=== PATIENT | female | born 1995 | race Caucasian/White ===

== ENCOUNTER → 2017-02-06 00:44 | Observation (INO) ==
[2017-02-06 00:42] VITALS: BP 113/76
--- NOTE | 2017-02-06 01:35 | Discharge Summary ---
Date of Encounter: 02/06/17 Time of Encounter: 01:36 - Discharge Diagnosis (1) 40 weeks gestation of Priority: Primary Status: Acute Comments: admitted for labor evaluation (2) False labor after 37 completed weeks of gestation Priority: Secondary Status: Acute Comments: No cervical change after monitoring for 1 hour (3) NST (non-stress test) reactive on surveillance Priority: Secondary Status: Acute Comments: FHR 140 bpm moderate variability +15x15 accels no decels noted. Contractions irregular. 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 Patient reports +FM. Patient denies LOF or VB. Patient receives care at [facility]. Patient had a reactive NST and did not make cervical change. Time Attestation: Total time spent providing and/or coordinating discharge services: Time Spent: Less than 30 minutes Exam - Constitutional Vitals: Temp Pulse Resp BP 98.9 F 96 16 113/76 02/06/17 00:41 02/06/17 00:41 02/06/17 00:41 02/06/17 00:41 General appearance IM: A&O X 3 - Other Additional findings: FHR 145 bpm moderate variability + 15x15 accels no decels noted. CAt. 1 tracing. Reactive NST Contractions are irregular. SVE was 4.5/80/-1 per RN on exam. No cervical change after 1 hour of observation. Discussed patient with Dr. Reich plan to discharge home if no cervical change. - VTE Reasons for not Prescribing Prophylaxis: Treatment not Indicated - Low risk for VTE
== END | disposition home or self-care (01) ==
LOC: 1NENULAB
PROVIDERS: ADMIT Obstetrics & Gynecology; ATTEND Obstetrics & Gynecology

== ENCOUNTER 2017-02-06 07:39 | Inpatient (IN) ==
[~2017-02-06 07:39] MED LIST: Ringers Solution, Lactated 1,000 ML ONE
[2017-02-06] MEDS ORDERED: Metoclopramide 10 MG/2 ML VIAL IVP PRN (07:43)
[2017-02-06] MEDS ORDERED: Naloxone 0.4 MG/ML INJ IVP PRN (07:43)
[2017-02-06] MEDS ORDERED: Ondansetron 4 MG/2 ML VIAL IVP PRN (07:43)
[2017-02-06] MEDS ORDERED: Famotidine 20 MG/2 ML VIAL IVP PRN (07:43)
[2017-02-06] MEDS ORDERED: Ringers Solution, Lactated 1,000 ML IVC SCH (07:45)
[2017-02-06 07:59] LABS: Basophils % 0.2 %; Eosinophils % 0.2 %; Hematocrit 35.8 % (35.3-44.9); Hemoglobin 11.4 g/dL (11.5-15.4); Immature Granulocytes % 0.8 % (0-4); Lymphocytes % 8.5 %; Mean Corpuscular HGB Conc 31.8 g/dL (31.6-35.5); Mean Corpuscular Hemoglobin 25.1 pg (28.0-33.3); Mean Corpuscular Volume 78.9 fL (83.0-100.0); Mean Platelet Volume 11.7 fL (9.4-12.4); Monocytes # 0.6 K/mcL (0.0-1.3); Monocytes % 4.7 %; Neutrophils # 9.9 K/mcL (1.6-8.9); Platelet Count 265 K/mcL (140-400); Red Blood Count 4.54 M/mcL (3.82-4.97); Red Cell Distribution Width 15.4 % (11.5-14.5); Segmented Neutrophils % 85.6 %
[2017-02-06] MEDS ORDERED: Ringers Solution, Lactated 1,000 ML ONE (08:12)
[2017-02-06] MEDS ORDERED: Bupivacaine-MPF 0.25% 10 ML VIAL EP ONE (08:18)
[2017-02-06] MEDS ORDERED: *HR* FentaNYL (PF) 100 MCG/2 ML VIAL EP ONE (08:18)
[2017-02-06] MEDS ORDERED: *HR* FentaNYL (PF) 100 MCG/2 ML VIAL ONE (08:21)
[2017-02-06] MEDS ORDERED: Bupivacaine-MPF 0.25% 10 ML VIAL ONE (08:21)
[2017-02-06] MEDS ORDERED: Epidural Premix (fent/bupiv) 110 ML EP ONE ×2 (08:22→15:28)
[2017-02-06] MEDS ORDERED: Epidural Premix (fent/bupiv) 110 ML EP SCH (08:30)
--- NOTE | 2017-02-06 09:11 | Anesthesia Evaluation PreOp ---
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 HX Other Medical History: GERD Anesthesia History: No Prior Anesthetic Complications (vag delivery x 1) : Yes Test: Positive Alcohol Use: none Drug use: none Medications and Allergies One Tablet 1 tab PO DAILY 02/06/17 [History] Allergies No Known Allergies Allergy (Verified 02/06/17 07:48) - Meds/Allergy Pre-op Review Medications Reviewed: Yes Allergies Reviewed: Yes Beta Blockers on Current Med List: No Anesthesia Results - Labs 02/06/17 07:24 Anesthesia Exam 3 Vital Signs Time 0810 BP 125/79 Pulse 93 Resp 16 O2 Sat 97 Height: 66 inches Weight: 74 kg NPO (# of Hours): clears Pain Scale: 8 Pain Scale Used: Numeric (1 - 10) - HEENT Pupil (Motor): Pupils equal Mallampati: II Teeth: Poor dentition Oral Opening: Greater than 3 - 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
--- NOTE | 2017-02-06 09:17 | Anesthesia Procedures ---
Date of Encounter: 02/06/17 Time of Encounter: 08:31 Procedures: Anesthesia - Epidural/Spinal Patient ID/Chart reviewed: Yes Patient examined: Yes OB Eval: Gestational age: 40 weeks 1 day OB Eval: : 2 OB Eval: Hx Para: 1 OB Eval: Dilated at (cm): 6 OB Eval: Contractions: Non-stressed pattern Consent Obtained: Yes Supplemental Oxygen: None/Room Air Site Prep: Aseptic Technique, Sterile prep and drape, Povidone-Iodine 1% Patient position: upright Local Anesthetic: Lidocaine 1% Amount of Local Anesthetic used: 3 Touhy Needle Gauge: 18 Touhy Needle Depth (cm): 5 Catheter Depth at Skin (cm): 12 Test Dose (1.5% Lido + Epi): Volume given (mls): 3 Test Dose Result: Negative Loading Dose: 0.25% Marcaine (mls): 5 Loading Dose: Fentanyl (mcg): 100 Loading Dose: Other: 3 ml saline Loading Dose Administered: Thru Catheter Infusion Med: 0.125% Bupivacaine w/ 2 mcg/ml Fentanyl Infusion Rate (mls/hr): [address]: Tegaderm, Tape Interspace Used: L3-L4 Loss of Resistance (STANTON): Yes (air) Blood: No CSF: No Paresthesia: No Procedure: 3 Vital Signs Time 0831 start 0846 cath 0854 loading dose 0903 pump started BP 133/76 122/69 115/71 113/72 Pulse 103 109 107 111 Resp 16 16 16 16 O2 Sat 97 97 97 97 heart tones 140 throughout
--- NOTE | 2017-02-06 10:35 | OB Labor Progress Note ---
Date of Encounter: 02/06/17 Time of Encounter: 10:34 Labor Progress Note - Subjective Subjective: Pt comfortable with epidural. - Cervix Cervix: 7/100/0 - Heart Tones Heart Tones: Category I - [place]: irregular - Interventions Interventions: AROM for small amount clear fluid - Plan Plan: Continue to monitor and reposition frequently. Anticipate .
--- NOTE | 2017-02-06 10:42 | OB/GYN History & Physical ---
Date of Encounter: 02/06/17 Time of Encounter: 10:39 Assessment and Plan (1) Spontaneous onset of labor Current visit: Yes Status: Acute Admit for expectant management. Epidural. AROM performed. Anticipate . (2) Rh negative status during in third trimester, antepartum Current visit: Yes Status: Acute (3) 40 weeks gestation of Current visit: No Status: Acute History of Present Illness HPI: Ms. Lopez is a 22 year old female presenting at 40 weeks gestation with c/o contractions. She was seen last evening and was 4-5cm and when she returned this am she was 6cm dilated. No other complaints. Good FM. She received PNC at [facility] with this . Blood type O negative. Serologies and GBS negative. She denies any problems with this or her last /delivery. No medical or surgical history. She denies smoking or any other substances. Past Med Surg Social Fam HX - Past Medical History Medical history: no medical history Psychiatric history: no psych history - Past Surgical History Surgical History: no surgical history - Social History Smoking Status: Never smoker Smokeless Tobacco Status: No Alcohol use: none Drug use: none - Family History Maternal Grandmother Adopted: No Family Member Ethnicity: Non- Living Status: Still Living Hx Family Cardiac Disorders: Yes (htn) Obstetrical History - Pregnancies : 2 Para: 1 Term: 1 : 0 Ab's: 0 Livin Medications and Allergies One Tablet 1 tab PO DAILY 02/06/17 [History] Allergies No Known Allergies Allergy (Verified 02/06/17 07:48) Review of System OB All systems PM: reviewed and no additional remarkable complaints except as stated Exam - Constitutional Constitutional: well developed, well nourished - HEENT HEENT: Mucus Membranes Moist - Lungs Respiratory exam: CTAB - Cardiovascular Cardiovascular exam: RRR - Abdomen Abdomen: Present: gravid, non tender - Extremities Extremities exam: normal inspection - Vagina Vagina: Present: normal moisture - Cervix Dilation: 7 Effacement: 100 Station: 0 - Anus/Rectum Anus/Rectum: Present: normal perianal skin Results Result Diagrams: 02/06/17 07:24 Abnormal lab results WBC 11.6 K/mcL (4.3-11.1) H 02/06/17 07:24 Hgb 11.4 g/dL (11.5-15.4) L 02/06/17 07:24 MCV 78.9 fL (83.0-100.0) L 02/06/17 07:24 MCH 25.1 pg (28.0-33.3) L 02/06/17 07:24 RDW 15.4 % (11.5-14.5) H 02/06/17 07:24 Neutrophils # 9.9 K/mcL (1.6-8.9) H 02/06/17 07:24 All other labs normal. - VTE Reasons for not Prescribing Prophylaxis: Treatment not Indicated - Low risk for VTE
--- NOTE | 2017-02-06 13:35 | OB Labor Progress Note ---
Date of Encounter: 02/06/17 Time of Encounter: 13:33 Labor Progress Note - Subjective Subjective: Pt comfortable with epidural. - Cervix Cervix: 8/100/0 - Heart Tones Heart Tones: Category I - Interventions Interventions: IUPC placed - Plan Plan: Continue to monitor. Will augment with pitocin if contractions inadequate. Anticipate .
[2017-02-06] MEDS ORDERED: Oxytocin 20 units/ LR 1000 mL 20 UNIT/1,000 ML BAG IVC SCH ×2 (14:15→20:23)
[2017-02-06] MEDS ORDERED: *HR* Ropivacaine/PF 0.2% 10 ML AMPUL ONE (15:17)
--- NOTE | 2017-02-06 15:37 | Anesthesia Progress Note ---
Date of Encounter: 02/06/17 Time of Encounter: 15:22 Anesthesia Note - Note Note: 02/06/17 15:35 patient complaining of contraction pain in abdominal region, 10 ml bolus of ropivicaine 0.2% given in 3 increments over 10 min. 3 Vital Signs Time 1520 1525 BP 126/69 119/64 Pulse 103 102 Resp 18 18 O2 Sat
--- NOTE | 2017-02-06 19:04 | OB/GYN Procedure Note ---
Delivery - Delivery Date: 02/06/17 Provider: Sonia Molina Delivery induction: none Delivery augmentation: rupture of membranes Delivery monitor: external FHT, internal uterine Anesthesia: epidural Estimated Blood Loss: 200 - Infant (s) A Delivery Date: 02/06/17 Delivery Time: 18:39 Presentation: vertex Position: CHARU Route of delivery: Gender: Female Viability: Viable Pounds: 8 Ounces: 10 Weight Gram: 3905 kg at 1 minute: 8 at 5 mins: 9 Shoulder Dystocia: not encountered Specimens collected: cord blood Placenta: spontaneous Cord: 3 umbilical vessels - Repair Episiotomy: none Laceration Description: None - Complications Delivery complications: meconium (terminal meconium) Delivery comments: Pt presented in active labor and progressed normally after AROM and epidural. She underwent over intact perineum for viable female weighing 8lbs 10oz. After a 3 minute delay the cord was clamped and cut and the placenta delivered spontaneous and intact. No repair needed. Pt and baby stable in kangaroo care following delivery. - Disposition Mom disposition: stable in LDR [place] disposition: stable in LDR
[2017-02-06] MEDS ORDERED: Ampicillin 2 GM in 0.9 % Sodium Chloride Mini Bag 100 ML IVPB ONE (20:03)
[2017-02-06] MEDS ORDERED: Acetaminophen 325 MG TABLET PO PRN (20:23)
[2017-02-06] MEDS ORDERED: Rho Immune Globulin 1,500 UNIT SYRINGE IM PRN (20:23)
[2017-02-06] MEDS ORDERED: Lanolin 7 G OINT...G. TP PRN (20:23)
[2017-02-06] MEDS ORDERED: Benzocaine/Menthol 56 GM AEROSOL SPRAY TP PRN (20:23)
[2017-02-06] MEDS ORDERED: Measles/Mumps/Rubella Vacc 0.5 ML VIAL SQ PRN (20:23)
[2017-02-07] MEDS: Ibuprofen 600 MG TABLET PO PRN ×3 (07:27→21:27)
--- NOTE | 2017-02-07 08:57 | OB/GYN Progress Note ---
Date of Encounter: 02/07/17 Time of Encounter: 08:56 - Assessment and Plan (1) Vaginal delivery Current Visit: Yes Status: Acute Pt meeting milestones for PPD 1. Continue current management. Anticipate DC tomorrow. Subjective - Subjective Interval history: Pt states feeling well, , pain well managed on po pain medication, bleeding with some clots but amount is lessening. Patient reports: appetite normal, voiding normally, pain well controlled, ambulating normally [place]: doing well, nursing well Objective - Latest Vital Signs Latest vital signs: Vital Signs Temp Pulse Resp BP Pulse Ox 02/07/17 03:01 98.6 F 88 16 103/63 99 02/06/17 22:19 98 F 98 16 115/77 100 02/06/17 21:30 98.1 F 82 18 129/78 100 02/06/17 20:30 98.0 F 87 18 126/78 99 Intake and Output 02/06/17 02/07/17 02/07/17 23:59 07:59 15:59 Intake Total 800 / 800 Output Total 2200 / 2200 Balance -2200 / -2200 800 / 800 Intake: Oral 800 / 800 Output: Urine 1200 / 1200 Estimated Blood Loss 200 / 200 Catheter 800 / 800 Other: # Voids 1 1 - Exam Lungs: bilateral: normal Chest: Normal S1, Normal S2 Extremities: Present: normal Abdomen: Present: normal appearance, soft Uterus: Present: normal, firm Uterus Position: At Umbilicus - Labs Labs: Laboratory Results - last 24 hr 02/06/17 19:03 Baby's Blood Type O RH NEGATIVE Mother's Blood Type O RH NEGATIVE Rhogam Indicated NO
[2017-02-07] MEDS ORDERED: Prenatal Vit/FA 1 EACH TABLET PO SCH (09:00)
--- NOTE | 2017-02-08 08:01 | Discharge Summary ---
Date of Encounter: 02/08/17 Time of Encounter: 07:58 - Discharge Diagnosis (1) Vaginal delivery Priority: Primary Status: Acute - Discharge Medications Home Medications: One Tablet 1 tab PO DAILY 02/06/17 [History] Allergies/Adverse Reactions: Allergies No Known Allergies Allergy (Verified 02/06/17 07:48) Data Procedures and tests throughout hospitalization: Laboratory Tests 02/06/17 02/06/17 07:24 19:03 WBC 11.6 H RBC 4.54 Hgb 11.4 L Hct 35.8 MCV 78.9 L MCH 25.1 L MCHC 31.8 RDW 15.4 H Plt Count 265 MPV 11.7 Immature Gran % 0.8 Seg Neutrophils % 85.6 Lymphocytes % 8.5 Monocytes % 4.7 Eosinophils % 0.2 Basophils % 0.2 Neutrophils # 9.9 H Lymphocytes # 1.0 Monocytes # 0.6 Eosinophils # 0.0 Basophils # 0.0 Baby's Blood Type O RH NEGATIVE Mother's Blood Type O RH NEGATIVE Rhogam Indicated NO Date of admission: 02/06/17 07:39 Primary care physician: PCP NONE Consults: 02/06/17 20:23 Consult to National Account Representative [CONS] Routine Comment: Vaginal delivery, consult needed Consult to Logging Operations Inspector [CONS] Routine Reason for SW Consult: PNC outside hospital Discharging clinician: Radha Correa Anticipated date of discharge: 02/08/17 - Patient Status Disposition: Home, Self-Care Condition: Good Functional capacity at discharge: independent ambulation Overall status at discharge: patient is back to baseline - Discharge Instructions Follow Up With: NONE,PCP [Primary Care Provider] - Additional Instructions: Follow-up with your OB-STACKER DRIVER Connie Erickson - Diet and Activity Diet: regular diet Hospital Course Reason for admission: active labor Delivery: Episiotomy: none Laceration: none Other procedures: none complications: none Discharge diagnosis: IUP at term delivered [place] baby: female Hospital course: - Delivery Date: 02/06/17 Provider: Sonia Molina Delivery induction: none Delivery augmentation: rupture of membranes Delivery monitor: external FHT, internal uterine Anesthesia: epidural Estimated Blood Loss: 200 - Infant (s) Infant A Infant Delivery Date: 02/06/17 Delivery Time: 18:39 Presentation: vertex Position: CHARU Route of delivery: Gender: Female Viability: Viable Pounds: 8 Ounces: 10 Weight Gram: 3905 kg at 1 minute: 8 at 5 mins: 9 Shoulder Dystocia: not encountered Specimens collected: cord blood Placenta: spontaneous Cord: 3 umbilical vessels - Repair Episiotomy: none Laceration Description: None - Complications Delivery complications: meconium (terminal meconium) Delivery comments: Pt presented in active labor and progressed normally after AROM and epidural. She underwent over intact perineum for viable female weighing 8lbs 10oz. After a 3 minute delay the cord was clamped and cut and the placenta delivered spontaneous and intact. No repair needed. Pt and baby stable in kangaroo care following delivery. Time Attestation: Total time spent providing and/or coordinating discharge services: Exam - Constitutional Vitals: Temp Pulse Resp BP Pulse Ox 97.8 F 102 16 100/60 98 02/07/17 19:40 02/07/17 19:40 02/07/17 19:40 02/07/17 19:40 02/07/17 19:40 General appearance IM: A&O X 3, answers questions appropriately - Respiratory Respiratory exam: Present: CTAB - Cardiovascular Cardiovascular exam IM: Present: RRR, +S1, +S2 - GI/Abdominal GI/Abdominal exam IM: normal bowel sounds, soft - Uterus Position: 3 Fingers Below Umbilicus, Midline - Extremities Exam Extremities exam IM: Present: normal capillary refill, normal inspection, warm
[2017-02-08 08:25] VITALS: BP 120/83
== END 2017-02-08 11:25 | disposition home or self-care (01) | DRG 560 ==
LOC: 1NENULAB 07:39 → 1NENUOBS 20:26
PROVIDERS: ADMIT Registered Nurse; ATTEND Registered Nurse

== ENCOUNTER 2018-08-21 08:00 | Inpatient (IN) ==
[2018-08-21] MEDS ORDERED: *HR* Nalbuphine 10 MG/ML AMPUL IVP PRN (08:37)
[2018-08-21] MEDS ORDERED: Famotidine 20 MG/2 ML VIAL IVP PRN (08:37)
[2018-08-21] MEDS ORDERED: Ondansetron 4 MG/2 ML VIAL IVP PRN (08:37)
[2018-08-21] MEDS ORDERED: Naloxone 0.4 MG/ML INJ IVP PRN (08:37)
[2018-08-21] MEDS ORDERED: Metoclopramide 10 MG/2 ML VIAL IVP PRN (08:37)
[2018-08-21] MEDS ORDERED: D5% in 0.45% NACL 1,000 ML IVC SCH (08:45)
[2018-08-21] MEDS ORDERED: Oxytocin 20 units/ LR 1000 mL 20 UNIT/1,000 ML BAG IVC SCH ×2 (08:45→19:56)
[2018-08-21] MEDS ORDERED: Ringers Solution, Lactated 1,000 ML ONE (08:54)
--- NOTE | 2018-08-21 09:01 | OB/GYN History & Physical ---
Date of Encounter: 08/21/18 Time of Encounter: 08:53 Assessment and Plan (1) 39 weeks gestation of Current visit: Yes Status: Acute The patient has only hand 10 pound weight gain since 28 weeks. Induction of labor. History of 8 lbs. 10 oz. vaginal delivery (2) Late care affecting in third trimester Current visit: Yes Status: Acute (3) Anemia complicating , third trimester Current visit: Yes Status: Acute The patient is currently receiving iron supplementation. CBC on admission pending (4) Blood type O- Current visit: Yes Status: Acute RhoGAM evaluation following delivery History of Present Illness Chief complaint: IOL HPI: Ms. Lopez is a 23 year old female with an EDC of 08/24/18 by a 28 week ultrasound, who presents for induction of labor at 39 weeks and 4 days. Her has been complicated by late care, anemia, advanced cervical dilatation with a proven pelvis to 8 lbs. 10 oz. Her labs include a blood type of O-, she is GBS negative, rubella immune, varicella immune, hepatitis B surface antigen negative. She has had appropriate interval growth. She is requesting an induction of labor due to social issues with the FOB's plans for work. She has had no bleeding or loss of fluid but reports cramping with a tight abdomen this morning. Her fetus has been active, meeting kick count criteria. Past Med Surg Social Fam HX - Past Medical History Source: patient, old records reviewed Medical history: no medical history Psychiatric history: no psych history - Past Surgical History Surgical History: no surgical history - Social History Smoking Status: Never smoker Smokeless Tobacco Status: No Alcohol use: none Drug use: none - Family History Maternal Grandmother Adopted: No Family Member Ethnicity: Non- Living Status: Still Living Hx Family Cardiac Disorders: Yes (htn) Obstetrical History - Pregnancies : 3 Term: 2 Livin Medications and Allergies One Tablet 1 tab PO DAILY 02/06/17 [History] Ferrous Sulfate 325 mg PO DAILY 08/21/18 [History] Allergy/AdvReac Type Severity Reaction Status Date / Time No Known Allergies Allergy Verified 02/06/17 07:48 Review of System OB All systems PM: reviewed and no additional remarkable complaints except as stated - Constitutional Constitutional ROS IM: fatigue, weight gain - Gastrointestinal Gastrointestinal: cramping Exam - Vital Signs Vital signs: Afebrile, vital signs stable. heart tones 130s baseline, CAT 1. [place] shows no regular contractions. - Constitutional Constitutional: well developed, well nourished, no acute distress, average body habitus - HEENT HEENT: Normocephaly, Mucus Membranes Moist - Neck Neck exam: normal inspection, supple - Lungs Respiratory exam: CTAB - Cardiovascular Cardiovascular exam: RRR - Abdomen Abdomen: Present: bowel sounds normal, gravid, non tender - Cervix Dilation: 5 Effacement: 70 Station: -1 - Uterus Uterus exam: Present: normal contour - Anus/Rectum Anus/Rectum: Present: normal perianal skin Results All other labs normal. - VTE Reasons for not Prescribing Prophylaxis: Treatment not Indicated - Low risk for VTE
[2018-08-21 09:12] LABS: Basophils % 0.1 %; Eosinophils # 0.1 K/mcL (0.0-0.6); Eosinophils % 1.2 %; Hematocrit 32.8 % (35.3-44.9); Hemoglobin 10.9 g/dL (11.5-15.4); Immature Granulocytes % 0.7 % (0-4); Lymphocytes # 1.5 K/mcL (0.6-4.6); Lymphocytes % 20.1 %; Mean Corpuscular HGB Conc 33.2 g/dL (31.6-35.5); Mean Corpuscular Hemoglobin 26.5 pg (28.0-33.3); Mean Corpuscular Volume 79.6 fL (83.0-100.0); Mean Platelet Volume 11.2 fL (9.4-12.4); Monocytes # 0.6 K/mcL (0.0-1.3); Monocytes % 7.9 %; Neutrophils # 5.3 K/mcL (1.6-8.9); Platelet Count 270 K/mcL (140-400); Red Blood Count 4.12 M/mcL (3.82-4.97); Red Cell Distribution Width 14.3 % (11.5-14.5)
[2018-08-21 09:24] LABS: Amphetamine Screen,Urine Negative ng/mL (Cutoff=1000); Barbiturate Screen,Urine Negative ng/mL (Cutoff=200); Benzodiazepines Screen,Urine Negative ng/mL (Cutoff=200); Cannabinoid Screen,Urine Negative ng/mL (Cutoff = 50); Cocaine Screen,Urine Negative ng/mL (Cutoff= 300); Opiate Screen,Urine Negative ng/mL (Cutoff=300); Phencyclidine Screen,Urine Negative ng/mL (Cutoff=25)
[2018-08-21] MEDS ORDERED: Epidural Premix (fent/bupiv) 110 ML EP SCH (09:30)
--- NOTE | 2018-08-21 13:01 | OB Labor Progress Note ---
Date of Encounter: 08/21/18 Time of Encounter: 12:59 Labor Progress Note - Subjective Subjective: The patient reports that she is still comfortable despite her contractions - Vital Signs Vital Signs: Afebrile, vital signs stable - Cervix Cervix: 5/70/-1, vertex with bulgy bag of water - Heart Tones Heart Tones: 120s baseline, CAT 1 - [place]: Contractions every 3 minutes on 14 milliunits of Pitocin by external monitor - Interventions Interventions: 39 week IUP for induction of labor - Plan Plan: Amniotomy, moderate to large amount of clear fluid seen, IUPC placed. Continue induction of labor. Pain management per patient request
[2018-08-21] MEDS ORDERED: Lidocaine -MPF 1% 5 ML AMPUL ONE (13:33)
--- NOTE | 2018-08-21 17:35 | OB/GYN Procedure Note ---
Delivery - Delivery Date: 08/21/18 Provider: Nancy Garza Intrapartum events: none Delivery induction: oxytocin Delivery augmentation: rupture of membranes Delivery monitor: external FHT, external uterine, internal uterine Anesthesia: intravenous Quantitated Blood Loss: 100 - (s) A Infant Delivery Date: 08/21/18 Delivery Time: 17:05 Presentation: vertex Position: CHARU Route of delivery: Gender: Male Viability: Viable Pounds: 8 Ounces: 14 Weight Gram: 4.015 kg at 1 minute: 8 at 5 mins: 9 Shoulder Dystocia: encountered Shoulder Dystocia Maneuvers: Noah maneuver, Garcia Screw maneuver, Reverse Garcia Screw maneu Shoulder dystocia time elapsed: 66 seconds Specimens collected: cord blood Placenta: spontaneous, uterine exploration Cord: 3 umbilical vessels - Repair Episiotomy: none Laceration Description: None - Complications Delivery complications: uterine atony Delivery comments: The patient was complete and pushing for 2 contractions without anesthesia with a spontaneous vaginal delivery in the CHARU position with a shoulder dystocia of 66 seconds requiring Garcia screw and reverse Garcia screw maneuver. Trial of delivery of the posterior shoulder was not successful. A vigorous male infant weighing 8 lbs.14 oz. with Apgars of 8 at 1 minute and 9 at 5 minutes was delivered, placed on the maternal abdomen and handed to the nursery care team. The cord was clamped and cut after pulsations ceased. Cord blood obtained. The placenta was delivered spontaneous and intact. Three-vessel cord confirmed. There were no cervical vaginal or perineal lacerations. There was uterine atony which was treated with uterine exploration, external uterine massage and evacuation of clots. 400mcg of Cytotec was given orally. Estimated blood loss 100 mL immediate and 400 mL blood clot, other complications none. Both mother and were recovering in stable condition in the LDR - Disposition Mom disposition: stable in LDR disposition: stable in LDR
[2018-08-21] MEDS ORDERED: Rho Immune Globulin 1,500 UNIT SYRINGE IM PRN (19:56)
[2018-08-21] MEDS ORDERED: Acetaminophen 325 MG TABLET PO PRN (19:56)
[2018-08-21] MEDS ORDERED: Measles/Mumps/Rubella Vacc 0.5 ML VIAL SQ PRN (19:56)
[2018-08-21] MEDS: Ibuprofen 600 MG TABLET PO SCH (21:24)
[2018-08-21] MEDS ORDERED: Melatonin 3 MG TABLET PO PRN (22:24)
[2018-08-22] MEDS: Prenatal Vit/FA 1 EACH TABLET PO SCH (08:56)
[2018-08-22 09:26] LABS: Basophils % 0.2 %; Eosinophils % 0.2 %; Hemoglobin 11.4 g/dL (11.5-15.4); Immature Granulocytes % 0.7 % (0-4); Lymphocytes # 1.6 K/mcL (0.6-4.6); Lymphocytes % 13.3 %; Mean Corpuscular HGB Conc 32.6 g/dL (31.6-35.5); Mean Corpuscular Hemoglobin 26.4 pg (28.0-33.3); Mean Platelet Volume 10.7 fL (9.4-12.4); Monocytes # 0.6 K/mcL (0.0-1.3); Monocytes % 5.2 %; Neutrophils # 9.6 K/mcL (1.6-8.9); Platelet Count 296 K/mcL (140-400); Red Blood Count 4.32 M/mcL (3.82-4.97); Red Cell Distribution Width 14.4 % (11.5-14.5); Segmented Neutrophils % 80.4 %
--- NOTE | 2018-08-22 15:12 | OB/GYN Progress Note ---
Date of Encounter: 08/22/18 Time of Encounter: 15:10 - Assessment and Plan (1) Vaginal delivery Current Visit: No Status: Acute Stable day #1 Continue current management Anticipate discharge tomorrow Subjective - Subjective Interval history: Patient states feels well, pain will managed on by mouth pain medication, tolerating diet, breast-feeding Patient reports: appetite normal, voiding normally, pain well controlled, ambulating normally [place]: doing well, nursing well Objective - Latest Vital Signs Latest vital signs: Vital Signs Temp Pulse Resp BP Pulse Ox 08/22/18 08:20 14 08/22/18 08:06 97.6 F 79 16 107/69 08/22/18 04:26 97.6 F 58 18 97/53 100 08/21/18 21:50 97.8 F 78 18 108/65 100 08/21/18 21:27 98.1 F 86 18 97/57 98 08/21/18 19:50 98.1 F 80 16 115/83 100 Intake and Output 08/21/18 08/22/18 08/22/18 23:59 07:59 15:59 Intake Total 1865 / 1865 Output Total 1000 / 1000 1700 / 1700 1999 Balance -1000 / -1000 -1700 / -1700 -135 / -135 Intake: Oral 1865 / 1865 Output: Urine 1000 / 1000 1700 / 1700 1999 Other: Meal Lunch Percent of Meal Consumed 80% Stool Characteristics Normal for Patient - Exam Lungs: bilateral: normal Chest: Normal S1, Normal S2 Extremities: Present: normal Abdomen: Present: soft Uterus: Present: firm Uterus Position: At Umbilicus - Labs Labs: Laboratory Results - last 24 hr 08/21/18 08/22/18 17:25 09:15 WBC 11.9 H D RBC 4.32 Hgb 11.4 L Hct 35.0 L MCV 81.0 L MCH 26.4 L MCHC 32.6 RDW 14.4 Plt Count 296 MPV 10.7 Immature Gran % 0.7 Seg Neutrophils % 80.4 Lymphocytes % 13.3 Monocytes % 5.2 Eosinophils % 0.2 Basophils % 0.2 Neutrophils # 9.6 H Lymphocytes # 1.6 Monocytes # 0.6 Eosinophils # 0.0 Basophils # 0.0 Baby's Blood Type O RH NEGATIVE Mother's Blood Type O RH NEGATIVE Rhogam Indicated NO
[2018-08-22] MEDS: Ibuprofen 600 MG TABLET PO SCH (20:47)
[2018-08-23] MEDS: Prenatal Vit/FA 1 EACH TABLET PO SCH (08:00)
[2018-08-23 08:34] VITALS: BP 105/67
--- NOTE | 2018-08-23 09:18 | Discharge Summary ---
Date of Encounter: 08/23/18 Time of Encounter: 09:16 - Discharge Diagnosis (1) Vaginal delivery Priority: Primary Status: Acute Comments: S/P vaginal delivery day 2 Pain well controlled Lochia light and without clots VSS Tolerating regular diet; passing flatus Voiding without difficulty Breast feeding Discharge home today POC per consult with Dr Salomon (2) Anemia complicating the puerperium Priority: Secondary Status: Acute Comments: VSS, denies symptoms, discharge home with ferrous sulfate - Discharge Medications Prescriptions: New Acetaminophen [Tylenol] 650 mg PO Q6HR PRN tablet PRN Reason: Mild Pain Ibuprofen [Motrin] 600 mg PO Q6HR #30 tablet Breast Pump [BREAST PUMP] 1 each .ROUTE AD #1 each Docusate [Colace] 100 mg PO BID #30 capsule Ferrous Sulfate 325 mg PO DAILY@0800 90 Days #90 tablet Melatonin 3 mg PO HS PRN tablet PRN Reason: Insomnia Continue One Tablet 1 tab PO DAILY Discontinued Ferrous Sulfate 325 mg PO DAILY Home Medications: One Tablet 1 tab PO DAILY 02/06/17 [History] Acetaminophen [Tylenol] 650 mg PO Q6HR PRN tablet 08/23/18 [Rx] Breast Pump [BREAST PUMP] 1 each .ROUTE AD #1 each 08/23/18 [Rx] Docusate [Colace] 100 mg PO BID #30 capsule 08/23/18 [Rx] Ferrous Sulfate 325 mg PO DAILY@0800 90 Days #90 tablet 08/23/18 [Rx] Ibuprofen [Motrin] 600 mg PO Q6HR #30 tablet 08/23/18 [Rx] Melatonin 3 mg PO HS PRN tablet 08/23/18 [Rx] Allergies/Adverse Reactions: Allergy/AdvReac Type Severity Reaction Status Date / Time No Known Allergies Allergy Verified 02/06/17 07:48 Data Procedures and tests throughout hospitalization: Laboratory Tests 08/21/18 08/21/18 08/21/18 08:39 08:45 17:25 WBC 7.5 RBC 4.12 Hgb 10.9 L Hct 32.8 L MCV 79.6 L MCH 26.5 L MCHC 33.2 RDW 14.3 Plt Count 270 MPV 11.2 Immature Gran % 0.7 Seg Neutrophils % 70.0 Lymphocytes % 20.1 Monocytes % 7.9 Eosinophils % 1.2 Basophils % 0.1 Neutrophils # 5.3 Lymphocytes # 1.5 Monocytes # 0.6 Eosinophils # 0.1 Basophils # 0.0 Urine Opiates Screen Negative Ur Barbiturates Screen Negative Ur Phencyclidine Scrn Negative Ur Amphetamines Screen Negative U Benzodiazepines Scrn Negative Urine Cocaine Screen Negative U Marijuana (THC) Screen Negative Ur Drug Screen Interp See Below Baby's Blood Type O RH NEGATIVE Mother's Blood Type O RH NEGATIVE Rhogam Indicated NO 08/22/18 09:15 WBC 11.9 H D RBC 4.32 Hgb 11.4 L Hct 35.0 L MCV 81.0 L MCH 26.4 L MCHC 32.6 RDW 14.4 Plt Count 296 MPV 10.7 Immature Gran % 0.7 Seg Neutrophils % 80.4 Lymphocytes % 13.3 Monocytes % 5.2 Eosinophils % 0.2 Basophils % 0.2 Neutrophils # 9.6 H Lymphocytes # 1.6 Monocytes # 0.6 Eosinophils # 0.0 Basophils # 0.0 Urine Opiates Screen Ur Barbiturates Screen Ur Phencyclidine Scrn Ur Amphetamines Screen U Benzodiazepines Scrn Urine Cocaine Screen U Marijuana (THC) Screen Ur Drug Screen Interp Baby's Blood Type Mother's Blood Type Rhogam Indicated Labs on day of discharge: Labs from last 24 hours 08/22/18 09:15 WBC 11.9 H D RBC 4.32 Hgb 11.4 L Hct 35.0 L MCV 81.0 L MCH 26.4 L MCHC 32.6 RDW 14.4 Plt Count 296 MPV 10.7 Immature Gran % 0.7 Seg Neutrophils % 80.4 Lymphocytes % 13.3 Monocytes % 5.2 Eosinophils % 0.2 Basophils % 0.2 Neutrophils # 9.6 H Lymphocytes # 1.6 Monocytes # 0.6 Eosinophils # 0.0 Basophils # 0.0 Date of admission: 08/21/18 08:09 Primary care physician: PCP NONE Consults: 08/21/18 19:56 Consult to [employer] [CONS] Routine Comment: Vaginal delivery, consult needed Discharging clinician: Linda Bellamy Anticipated date of discharge: 08/23/18 - Patient Status Disposition: Home, Self-Care Condition: Good Functional capacity at discharge: independent ambulation Overall status at discharge: patient is progressing back to baseline - Discharge Instructions Follow Up With: NONE,PCP [Primary Care Provider] - Nancy Garza MD [Partnered Physician] - - Diet and Activity Activity: increase activity as tolerated Diet: regular diet Hospital Course Reason for admission: induction of labor, IUP at term Delivery: Episiotomy: none Laceration: none Other procedures: none complications: none Discharge diagnosis: IUP at term delivered baby: male Time Attestation: Total time spent providing and/or coordinating discharge services: Time Spent: Less than 30 minutes Exam - Constitutional Vitals: Temp Pulse Resp BP Pulse Ox 97.5 F L 90 16 105/67 94 08/23/18 08:10 08/23/18 08:10 08/23/18 08:10 08/23/18 08:10 08/23/18 08:10 General appearance IM: cooperative, A&O X 3, pleasant - Respiratory Respiratory exam: Present: CTAB - Cardiovascular Cardiovascular exam IM: Present: RRR, +S1, +S2 - GI/Abdominal GI/Abdominal exam IM: normal bowel sounds, soft - Rectal Rectal exam: deferred - Uterine Tone: Firm Uterus Position: At Umbilicus, Midline - Extremities Exam Extremities exam IM: Present: normal capillary refill, normal inspection, radial pulses palpable and symmetrical - Neurological Exam Neurological exam: alert, oriented X3
== END 2018-08-23 10:36 | disposition home or self-care (01) | DRG 560 ==
LOC: 1NENULAB 08:09 → 1NENUOBS 19:47
PROVIDERS: ADMIT Obstetrics & Gynecology; ATTEND Obstetrics & Gynecology

== ENCOUNTER 2021-01-01 10:05 | Inpatient (IN) ==
[2021-01-01] MEDS ORDERED: Naloxone 0.4 MG/ML INJ IVP PRN (10:21)
[2021-01-01] MEDS ORDERED: Famotidine 20 MG/2 ML VIAL IVP PRN (10:21)
[2021-01-01] MEDS ORDERED: miSOPROStoL 25 MCG TABLET PO PRN (10:21)
[2021-01-01] MEDS ORDERED: Metoclopramide 10 MG/2 ML VIAL IVP PRN (10:21)
[2021-01-01] MEDS ORDERED: *HR* Nalbuphine 10 MG/ML AMPUL IV PRN (10:21)
[2021-01-01] MEDS ORDERED: Lidocaine 1% 20 ML MDV INFILT PRN (10:21)
[2021-01-01] MEDS ORDERED: Ondansetron 4 MG/2 ML VIAL IVP PRN (10:21)
[2021-01-01] MEDS ORDERED: Ringers Solution, Lactated 1,000 ML IVC SCH (10:30)
[2021-01-01 11:38] LABS: Basophils % 0.2 %; Eosinophils # 0.1 K/mcL (0.0-0.6); Eosinophils % 0.9 %; Hematocrit 33.9 % (35.3-44.9); Hemoglobin 10.5 g/dL (11.5-15.4); Immature Granulocytes % 0.6 % (0-4); Lymphocytes # 1.6 K/mcL (0.6-4.6); Lymphocytes % 18.1 %; Mean Corpuscular Hemoglobin 23.3 pg (28.0-33.3); Mean Corpuscular Volume 75.3 fL (83.0-100.0); Mean Platelet Volume 11.7 fL (9.4-12.4); Monocytes # 0.7 K/mcL (0.0-1.3); Monocytes % 7.7 %; Neutrophils # 6.3 K/mcL (1.6-8.9); Platelet Count 304 K/mcL (140-400); Red Cell Distribution Width 15.6 % (11.5-14.5); Segmented Neutrophils % 72.5 %; White Blood Count 8.6 K/mcL (4.3-11.1)
[2021-01-01 11:48] LABS: Amphetamine Screen,Urine Negative ng/mL (Cutoff=1000); Barbiturate Screen,Urine Negative ng/mL (Cutoff=200); Benzodiazepines Screen,Urine Negative ng/mL (Cutoff=200); Cannabinoid Screen,Urine Negative ng/mL (Cutoff = 50); Cocaine Screen,Urine Negative ng/mL (Cutoff= 300); Opiate Screen,Urine Negative ng/mL (Cutoff=300); Phencyclidine Screen,Urine Negative ng/mL (Cutoff=25)
[2021-01-01] MEDS ORDERED: Oxytocin 20 units/ LR 1000 mL 20 UNIT/1,000 ML BAG IVC SCH (12:00)
[2021-01-02] MEDS ORDERED: *HR* FentaNYL (PF) 100 MCG/2 ML VIAL IVP ONE (00:12)
[2021-01-02] MEDS ORDERED: *HR* FentaNYL (PF) 100 MCG/2 ML VIAL ONE ×3 (00:15→00:55)
[2021-01-02] MEDS ORDERED: *HR* Midazolam HCl 2 MG/2 ML VIAL ONE (00:44)
[2021-01-02] MEDS ORDERED: Ketamine *HR* 500 MG/10 ML MDV ONE (00:46)
[2021-01-02] MEDS ORDERED: Acetaminophen IV 1,000 MG/100 ML BAG IVPB ONE (00:50)
[2021-01-02] MEDS ORDERED: *HR* Propofol 200 MG/20 ML VIAL IVP ONE ×2 (00:57→00:58)
[2021-01-02] MEDS ORDERED: Lidocaine -MPF 2% 5 ML VIAL ONE (01:00)
[2021-01-02] MEDS ORDERED: *HR* Succinylcholine 200 MG/10 ML VIAL IVP ONE (01:00)
[2021-01-02] MEDS ORDERED: Ondansetron 4 MG/2 ML VIAL ONE (01:08)
[2021-01-02] MEDS ORDERED: *HR* HYDROmorphone PF 0.5 MG/0.5 ML SYRINGE IVP PRN (01:52)
[2021-01-02] MEDS ORDERED: Ondansetron 4 MG/2 ML VIAL IVP PRN (01:52)
[2021-01-02] MEDS ORDERED: Rho Immune Globulin 1,500 UNIT SYRINGE IM PRN (03:58)
[2021-01-02] MEDS ORDERED: Acetaminophen 325 MG TABLET PO PRN (03:58)
[2021-01-02] MEDS ORDERED: Measles/Mumps/Rubella Vacc 0.5 ML VIAL SQ PRN (03:58)
[2021-01-02] MEDS: Oxytocin 20 units/ LR 1000 mL 20 UNIT/1,000 ML BAG IVC SCH ×2 (04:42→12:41)
[2021-01-02] MEDS ORDERED: Methylergonovine 0.2 MG/ML AMPUL IM ONE (05:30)
[2021-01-02 06:43] LABS: Basophils % 0.1 %; Hematocrit 30.2 % (35.3-44.9); Hemoglobin 9.3 g/dL (11.5-15.4); Immature Granulocytes % 0.8 % (0-4); Lymphocytes # 0.8 K/mcL (0.6-4.6); Lymphocytes % 3.8 %; Mean Corpuscular HGB Conc 30.8 g/dL (31.6-35.5); Mean Corpuscular Hemoglobin 23.1 pg (28.0-33.3); Mean Corpuscular Volume 74.9 fL (83.0-100.0); Mean Platelet Volume 11.2 fL (9.4-12.4); Monocytes # 0.4 K/mcL (0.0-1.3); Monocytes % 1.7 %; Neutrophils # 19.4 K/mcL (1.6-8.9); Platelet Count 293 K/mcL (140-400); Red Blood Count 4.03 M/mcL (3.82-4.97); Red Cell Distribution Width 15.4 % (11.5-14.5); Segmented Neutrophils % 93.6 %
[2021-01-02 06:45] LABS: White Blood Count 20.7 K/mcL (4.3-11.1)
[2021-01-02] MEDS: Piperacillin/Tazobactam 3.375 GM in 0.9 % Sodium Chloride Mini Bag 100 ML IVPB SCH ×2 (07:08→15:59)
[2021-01-02] MEDS: Ibuprofen 600 MG TABLET PO PRN ×2 (07:13→20:12)
[2021-01-02] MEDS ORDERED: NON-FORMULARY MEDICATION 1 EACH EACH (Ferrous Sulfate 1 TAB) PO SCH (09:00)
[2021-01-02] MEDS ORDERED: NON-FORMULARY MEDICATION 1 EACH EACH (Prenatal One Tablet 1 TAB) PO SCH (09:00)
[2021-01-02] MEDS: Prenatal Vit/FA 1 EACH TABLET PO SCH (09:11)
[2021-01-03] MEDS: Piperacillin/Tazobactam 3.375 GM in 0.9 % Sodium Chloride Mini Bag 100 ML IVPB SCH ×2 (00:11→07:50)
[2021-01-03 04:16] LABS: Basophils % 0.2 %; Eosinophils # 0.1 K/mcL (0.0-0.6); Eosinophils % 0.9 %; Hematocrit 22.9 % (35.3-44.9); Immature Granulocytes % 1.1 % (0-4); Lymphocytes % 19.9 %; Mean Corpuscular Hemoglobin 23.6 pg (28.0-33.3); Mean Corpuscular Volume 76.1 fL (83.0-100.0); Mean Platelet Volume 10.8 fL (9.4-12.4); Monocytes % 6.3 %; Neutrophils # 10.9 K/mcL (1.6-8.9); Platelet Count 272 K/mcL (140-400); Red Blood Count 3.01 M/mcL (3.82-4.97); Red Cell Distribution Width 15.8 % (11.5-14.5); Segmented Neutrophils % 71.6 %; White Blood Count 15.2 K/mcL (4.3-11.1)
[2021-01-03 04:18] LABS: Hemoglobin 7.1 g/dL (11.5-15.4)
[2021-01-03] MEDS: Prenatal Vit/FA 1 EACH TABLET PO SCH (07:40)
[2021-01-03] MEDS: Ibuprofen 600 MG TABLET PO PRN (07:40)
[2021-01-03 07:46] VITALS: BP 102/73
[2021-01-03] MEDS ORDERED: Ferumoxytol 510 MG in 0.9 % Sodium Chloride 100 ML IVPB ONE (08:58)
== END 2021-01-03 13:45 | disposition home or self-care (01) | DRG 542 ==
LOC: 1NENULAB 10:05 → 1NENUOBS 01-02 03:58
PROVIDERS: ADMIT Student in an Organized Health Care Education/Training Program; ATTEND Student in an Organized Health Care Education/Training Program